=== PATIENT | male | born 1960 | race Caucasian/White ===

== ENCOUNTER 2021-12-04 12:37 | Emergency (ER) | payer OTHER ==
[~2021-12-04] VITALS: Ht 180.3 cm; Wt 104.5 kg
[2021-12-04 12:42] VITALS: BP 100/67; TEMP 98
[2021-12-04] MEDS ORDERED: CEPHALEXIN500 M1 PO (13:02)
[2021-12-04 13:11] VITALS: PULSE 74
[2021-12-08] MEDS ORDERED: BACTRIM DS 8001 TAB PO ×3 (15:15→15:38)
== END 2021-12-04 13:11 | disposition home or self-care (01) ==
LOC: COL.ER 12:37
DX: L76.34 Postprocedural seroma of skin and subcutaneous tissue following other procedure (principal); Z87.891 Personal history of nicotine dependence; Z28.311 Partially vaccinated for COVID-19